=== PATIENT | female | born 1990 | race African-American/Black ===

== ENCOUNTER 2018-11-16 09:25 | Emergency (ER) | payer OTHER ==
[~2018-11-16] VITALS: Ht 167.6 cm; Wt 99.8 kg
[2018-11-16 10:51] LABS: HEMATOCRIT 40.3 % (37.0-47.0); HEMOGLOBIN 13.4 gm/dL (12.0-15.0); MCH 26.2 pg (26.0-34.0); MCHC 33.3 g/dL (28.0-37.0); MCV 78.6 fL (80.0-100.0); PLATELET COUNT 270 thou/uL (150-400); RBC 5.13 mil/uL (4.20-5.00); RDW 14.3 % (10.5-14.5); WBC 15.8 thou/uL (4.0-11.0)
[2018-11-16 10:58] LABS: URINE BILIRUBIN NEGATIVE (Negative); URINE BLOOD TRACE (Negative); URINE CLARITY CLEAR; URINE COLOR YELLOW; URINE GLUCOSE-RANDOM* NEGATIVE (Negative); URINE KETONES NEGATIVE (Negative); URINE LEUKOCYTES-REFLEX TRACE (Negative); URINE NITRITE-REFLEX NEGATIVE (Negative); URINE PROTEIN (DIPSTICK) NEGATIVE (Negative)
[2018-11-16 11:03] LABS: CALCIUM 9.6 mg/dL (8.5-10.1); POTASSIUM 3.7 mmol/L (3.5-5.1)
[2018-11-16 11:09] LABS: ALBUMIN 3.9 g/dL (3.4-5.0); TOTAL BILIRUBIN 0.7 mg/dL (<0.1-1.0)
[2018-11-16 11:28] VITALS: BP 128/62
[2018-11-16 11:33] LABS: ABSOLUTE NEUTROPHILS 12.6 thou/uL (1.4-8.2)
[2018-11-16 11:34] LABS: PLATELET ESTIMATE NORMAL
== END 2018-11-16 11:28 | disposition home or self-care (01) ==
LOC: ER 09:25
PROVIDERS: Physician Assistant
DX: J03.90 Acute tonsillitis, unspecified (principal); D72.829 Elevated white blood cell count, unspecified